=== PATIENT | female | born 2000 | race African-American/Black ===

== ENCOUNTER 2018-09-26 13:36 | Emergency (ER) | payer BC ==
[~2018-09-26] VITALS: Ht 170.2 cm; Wt 62.1 kg
[2018-09-26 13:47] VITALS: BP 116/65
[2018-09-26] MEDS ORDERED: LIDOCAINE 1% INJ 50 ML MDV IJ ONE (14:19)
[2018-09-26] MEDS ORDERED: LIDOCAINE HCL/PF 1% 30 ML VIAL TP ONE (14:30)
== END 2018-09-26 14:48 | disposition home or self-care (01) ==
LOC: ER 13:40
DX: T16.1XXA Foreign body in right ear, initial encounter (principal); W45.8XXA Other foreign body or object entering through skin, initial encounter; Y93.9 Activity, unspecified; Y92.89 Other specified places as the place of occurrence of the external cause; Y99.8 Other external cause status
CPT/HCPCS: A4606; A6402; J3490; Z7610